=== PATIENT | female | born 1950 | race Caucasian/White ===

== ENCOUNTER 2017-03-13 21:11 | Inpatient (IN) | payer MEDICARE, OTHER ==
[~2017-03-13] VITALS: Ht 154.9 cm; Wt 100.0 kg
[2017-03-13 21:42] LABS: HEMATOCRIT 42.6 % (37.0-47.0); HEMOGLOBIN 14.3 g/dl (12.0-16.0); IMMATURE GRANULOCYTES 0.2 % (0.0-1.0); MEAN CORPUSCULAR HGB 30.9 pG CALC (26.0-32.0); MEAN CORPUSCULAR HGB CONC 33.6 g/L CALC (32.0-36.0); NEUT# 6.55 thou/uL (2.00-7.15); RED BLOOD COUNT 4.63 mill/uL (4.20-5.60); RED CELL DISTRI WIDTH 14.6 % (11.5-15.5)
[2017-03-13 21:56] LABS: ALBUMIN 4.4 g/dL (3.2-5.0); ALKALINE PHOSPHATASE 101 u/l (38-126); ANION GAP 17 (6-22 (CALC)); BILIRUBIN, TOTAL 0.5 mg/dL (0.0-1.4); BUN 13 mg/dL (8-23); BUN/CREATININE RATIO 18 (12-20 (CALC)); CALCIUM 9.2 mg/dL (8.4-10.2); CARBON DIOXIDE 24 mmol/l (22-30); CHLORIDE 105 mmol/l (95-108); CREATININE 0.7 mg/dL (0.5-1.0); GFR > 60 ML/MIN (>=60 (CALC)); GFR FOR AFR.AMER. > 60 ML/MIN (>=60 (CALC)); GLUCOSE 132 mg/dL (82-115); POTASSIUM 3.9 mmol/l (3.5-5.1); SGOT/AST 34 u/l (9-36); SGPT/ALT 47 u/l (11-66); SODIUM 142 mmol/l (137-146); TOTAL PROTEIN 7.1 g/dL (6.3-8.2)
[2017-03-13] MEDS ORDERED: EFFEXOR XR75 MG PO (21:56)
[2017-03-13] MEDS ORDERED: TRAZODONE50 MG PO (21:56)
[2017-03-13] MEDS ORDERED: ARIPIPRAZOLE5 MG PO (21:59)
[2017-03-13] MEDS ORDERED: WELLBUTRIN150 M1 PO (21:59)
[2017-03-13] MEDS ORDERED: PHENTERMINE37.5 M1 PO (22:00)
[2017-03-13] MEDS ORDERED: VIMPAT200 MG PO (22:01)
[2017-03-13 22:06] LABS: MYOGLOBIN 81 ng/mL (0 - 62)
[2017-03-13 22:45] LABS: URINE BILIRUBIN - DIPSTICK NEGATIVE (NEGATIVE); URINE BLOOD DIPSTICK NEGATIVE (NEGATIVE); URINE CLARITY CLEAR; URINE COLOR YELLOW; URINE GLUCOSE - DIPSTICK NEGATIVE (NEGATIVE); URINE KETONE TRACE mg/dL (NEGATIVE); URINE LEUK ESTERASE NEGATIVE (NEGATIVE); URINE NITRITE - DIPSTICK NEGATIVE (Negative); URINE PROTEIN - DIPSTICK NEGATIVE (NEG-TRACE); URINE SPECIFIC GRAVITY >=1.030; URINE UROBILINOGEN - DIPSTICK 0.2 E.U./dL (0.2)
[2017-03-14] VITALS (7 sets, daily range): BP systolic 113–158; BP diastolic 54–73
== END 2017-03-14 15:25 | disposition short-term general hospital (02) | DRG 281 ==
LOC: ED 21:11 → ED-I 21:57 → ED 03-14 02:28 → ICU 03-14 02:29
PROVIDERS: Emergency Medicine; ADMIT Internal Medicine; ATTEND Internal Medicine
DX: I21.4 Non-ST elevation (NSTEMI) myocardial infarction (principal); Z68.41 Body mass index [BMI] 40.0-44.9, adult; F41.9 Anxiety disorder, unspecified; R91.8 Other nonspecific abnormal finding of lung field; E66.9 Obesity, unspecified; F31.9 Bipolar disorder, unspecified; F22 Delusional disorders; R09.02 Hypoxemia
CPT/HCPCS: J1650; J2060; Q9967

== ENCOUNTER → 2018-05-24 | Outpatient (REF) | payer MEDICARE, OTHER ==
[~2018-05-24] MED LIST: ARIPIPRAZOLE5 MG PO; EFFEXOR XR75 MG PO; PHENTERMINE37.5 M1 PO; TRAZODONE50 MG PO; VIMPAT200 MG PO; WELLBUTRIN150 M1 PO
[2018-05-24 10:14] LABS: HEMATOCRIT 40.6 % (37.0-47.0); HEMOGLOBIN 13.5 g/dl (12.0-16.0); IMMATURE GRANULOCYTES 0.4 % (0.0-5.0); MEAN CELL VOLUME 92.9 fL CALC (80.0-100.0); MEAN CORPUSCULAR HGB 30.9 pG CALC (26.0-32.0); MEAN CORPUSCULAR HGB CONC 33.3 g/L CALC (32.0-36.0); NEUT# 3.82 thou/uL (2.00-7.15); RED BLOOD COUNT 4.37 mill/uL (4.20-5.60); RED CELL DISTRI WIDTH 12.9 % (11.5-15.5)
[2018-05-24 10:36] LABS: ALKALINE PHOSPHATASE 113 u/l (38-126); ANION GAP 14 (6-22 (CALC)); BILIRUBIN, TOTAL 0.5 mg/dL (0.0-1.4); BUN 11 mg/dL (8-23); BUN/CREATININE RATIO 15 (12-20 (CALC)); CALCULATED LDLCHOLESTEROL 75 mg/dL (62-129 (CALC)); CARBON DIOXIDE 29 mmol/l (22-30); CHLORIDE 107 mmol/l (95-108); CHOLESTEROL HDL RATIO 3.3 (<4.4 (CALC)); CREATININE 0.7 mg/dL (0.5-1.0); GFR > 60 ML/MIN (>=60 (CALC)); GFR FOR AFR.AMER. > 60 ML/MIN (>=60 (CALC)); HDL CHOLESTEROL 42 mg/dL (>=40); POTASSIUM 4.1 mmol/l (3.5-5.1); SGOT/AST 21 u/l (9-36); SODIUM 146 mmol/l (137-146); TOTAL PROTEIN 6.6 g/dL (6.3-8.2); TOTAL TRIGLYCERIDES 105 mg/dl (30-149); VLDL CHOLESTROL 21 mg/dl (1-41 (CALC))
[2018-05-24 10:38] LABS: TOTAL CHOLESTEROL 138 mg/dl (0-199)
[2018-05-24 11:04] LABS: TSH, 3RD GENERATION 1.37 uIU/mL (0.47 - 4.68)
== END | disposition home or self-care (01) ==
LOC: LAB 09:14
PROVIDERS: ATTEND Internal Medicine
DX: E78.2 Mixed hyperlipidemia (principal)

== ENCOUNTER 2018-11-19 15:38 | Emergency (ER) | payer MEDICARE, OTHER ==
[~2018-11-19] VITALS: Ht 154.9 cm; Wt 86.0 kg
[2018-11-19 16:55] LABS: URINE BILIRUBIN - DIPSTICK NEGATIVE (NEGATIVE); URINE BLOOD DIPSTICK NEGATIVE (NEGATIVE); URINE COLOR YELLOW; URINE GLUCOSE - DIPSTICK NEGATIVE (NEGATIVE); URINE KETONE NEGATIVE (NEGATIVE); URINE LEUK ESTERASE NEGATIVE (NEGATIVE); URINE NITRITE - DIPSTICK NEGATIVE (Negative); URINE PROTEIN - DIPSTICK NEGATIVE (NEG-TRACE); URINE UROBILINOGEN - DIPSTICK 0.2 E.U./dL (0.2)
[2018-11-19] MEDS ORDERED: LISINOPRIL20 M1 PO (17:08)
[2018-11-19] MEDS ORDERED: ATORVASTATIN CA40 MG PO (17:08)
[2018-11-19] MEDS ORDERED: CARVEDILOL6.25 MG PO (17:17)
[2018-11-19] MEDS ORDERED: REXULTI3 MG PO (17:18)
[2018-11-19] MEDS ORDERED: PAROXETINE HCL40 MG PO (17:19)
[2018-11-19] MEDS ORDERED: RISPERDAL2 MG PO (17:19)
[2018-11-19] MEDS ORDERED: LORAZEPAM0.5 MG PO (17:20)
[2018-11-19] MEDS ORDERED: DONEPEZIL HCL5 MG PO (17:21)
[2018-11-19 17:28] LABS: HEMATOCRIT 40.6 % (37.0-47.0); HEMOGLOBIN 13.2 g/dl (12.0-16.0); IMMATURE GRANULOCYTES 0.3 % (0.0-5.0); MEAN CELL VOLUME 91.6 fL CALC (80.0-100.0); MEAN CORPUSCULAR HGB 29.8 pG CALC (26.0-32.0); MEAN CORPUSCULAR HGB CONC 32.5 g/L CALC (32.0-36.0); NEUT# 4.12 thou/uL (2.00-7.15); RED BLOOD COUNT 4.43 mill/uL (4.20-5.60)
[2018-11-19 17:35] LABS: ANION GAP 12 (6-22 (CALC)); BUN 12 mg/dL (8-23); BUN/CREATININE RATIO 18 (12-20 (CALC)); CARBON DIOXIDE 28 mmol/l (22-30); CHLORIDE 106 mmol/l (95-108); CREATININE 0.6 mg/dL (0.5-1.0); GFR > 60 ML/MIN (>=60 (CALC)); GFR FOR AFR.AMER. > 60 ML/MIN (>=60 (CALC)); SODIUM 142 mmol/l (137-146)
[2018-11-19 18:24] VITALS: BP 166/72
== END 2018-11-19 18:56 | disposition home or self-care (01) ==
LOC: ED 15:38
PROVIDERS: Family Medicine
DX: R53.1 Weakness (principal); I10 Essential (primary) hypertension; G30.9 Alzheimer's disease, unspecified; F02.80 Dementia in other diseases classified elsewhere, unspecified severity, without behavioral disturbance, psychotic disturbance, mood disturbance, and anxiety

== ENCOUNTER 2019-05-02 13:29 | Inpatient (IN) | payer MEDICARE, OTHER ==
[~2019-05-02] VITALS: Ht 154.9 cm; Wt 79.0 kg
[~2019-05-02 13:29] MED LIST changes: +ATORVASTATIN CA40 MG PO; +CARVEDILOL6.25 MG PO; +DONEPEZIL HCL5 MG PO; +LISINOPRIL20 M1 PO; +LORAZEPAM0.5 MG PO; +PAROXETINE HCL40 MG PO; +REXULTI3 MG PO; +RISPERDAL2 MG PO
[2019-05-02 14:06] LABS: HEMATOCRIT 40.5 % (37.0-47.0); HEMOGLOBIN 12.9 g/dl (12.0-16.0); IMMATURE GRANULOCYTES 0.2 % (0.0-5.0); MEAN CELL VOLUME 93.1 fL CALC (80.0-100.0); MEAN CORPUSCULAR HGB 29.7 pG CALC (26.0-32.0); MEAN CORPUSCULAR HGB CONC 31.9 g/L CALC (32.0-36.0); NEUT# 2.44 thou/uL (2.00-7.15); RED BLOOD COUNT 4.35 mill/uL (4.20-5.60); RED CELL DISTRI WIDTH 13.2 % (11.5-15.5)
[2019-05-02 14:19] LABS: BILIRUBIN, TOTAL 0.7 mg/dL (0.0-1.4); BUN 54 mg/dL (8-23); BUN/CREATININE RATIO 61 (12-20 (CALC)); CHLORIDE 106 mmol/l (95-108); CREATININE 0.9 mg/dL (0.5-1.0); GFR > 60 ML/MIN (>=60 (CALC)); GFR FOR AFR.AMER. > 60 ML/MIN (>=60 (CALC)); LIPASE 106 u/l (23-300); POTASSIUM 4.6 mmol/l (3.5-5.1); SODIUM 142 mmol/l (137-146)
[2019-05-02 14:24] LABS: ALKALINE PHOSPHATASE 162 u/l (38-126); ANION GAP 17 (6-22 (CALC)); CARBON DIOXIDE 24 mmol/l (22-30); SGOT/AST 37 u/l (9-36); TOTAL PROTEIN 7.3 g/dL (6.3-8.2)
[2019-05-02 15:49] LABS: URINE BLOOD DIPSTICK NEGATIVE (NEGATIVE); URINE COLOR YELLOW; URINE GLUCOSE - DIPSTICK NEGATIVE (NEGATIVE); URINE KETONE 15 mg/dL (NEGATIVE); URINE LEUK ESTERASE NEGATIVE (NEGATIVE); URINE NITRITE - DIPSTICK NEGATIVE (Negative); URINE PH 5.5 (4.5-8.0); URINE PROTEIN - DIPSTICK NEGATIVE (NEG-TRACE); URINE SPECIFIC GRAVITY >=1.030; URINE UROBILINOGEN - DIPSTICK 0.2 E.U./dL (0.2)
[2019-05-02 15:51] LABS: URINE BILIRUBIN - DIPSTICK NEGATIVE (NEGATIVE)
[2019-05-02] MEDS ORDERED: QUETIAPINE FUMA50 MG PO (17:50)
[2019-05-02] MEDS ORDERED: QUETIAPINE FUMA25 MG PO (17:50)
[2019-05-02] MEDS ORDERED: CLONAZEPAM1 MG PO (17:51)
[2019-05-02] MEDS ORDERED: ATORVASTATIN CA20 MG PO (17:52)
[2019-05-02] MEDS ORDERED: ASPIRIN81 MG PO (17:53)
[2019-05-02] MEDS ORDERED: BENZTROPINE0.5 MG PO (17:54)
[2019-05-02] MEDS ORDERED: VITAMIN D1000 UNI1 PO (17:55)
[2019-05-02 19:12] VITALS: BP 132/64
[2019-05-02 23:12] VITALS: BP 134/59
[2019-05-03 03:51] VITALS: BP 150/62
[2019-05-03 09:30] VITALS: BP 130/80
[2019-05-03 10:46] VITALS: BP 151/84
[2019-05-03 13:32] LABS: ALKALINE PHOSPHATASE 131 u/l (38-126); ANION GAP 14 (6-22 (CALC)); BILIRUBIN, TOTAL 0.6 mg/dL (0.0-1.4); BUN 28 mg/dL (8-23); BUN/CREATININE RATIO 41 (12-20 (CALC)); CARBON DIOXIDE 24 mmol/l (22-30); CHLORIDE 108 mmol/l (95-108); CREATININE 0.7 mg/dL (0.5-1.0); GFR > 60 ML/MIN (>=60 (CALC)); GFR FOR AFR.AMER. > 60 ML/MIN (>=60 (CALC)); POTASSIUM 3.9 mmol/l (3.5-5.1); SGOT/AST 30 u/l (9-36); SODIUM 142 mmol/l (137-146)
[2019-05-03 13:47] LABS: TOTAL PROTEIN 5.6 g/dL (6.3-8.2)
[2019-05-03 14:54] VITALS: BP 140/56
[2019-05-03 19:53] VITALS: BP 126/60
[2019-05-03 23:07] VITALS: BP 98/55
[2019-05-04 04:10] VITALS: BP 115/59
[2019-05-04 05:38] LABS: HEMATOCRIT 35.7 % (37.0-47.0); MEAN CELL VOLUME 94.9 fL CALC (80.0-100.0); MEAN CORPUSCULAR HGB 29.3 pG CALC (26.0-32.0); MEAN CORPUSCULAR HGB CONC 30.8 g/L CALC (32.0-36.0); RED BLOOD COUNT 3.76 mill/uL (4.20-5.60); RED CELL DISTRI WIDTH 13.2 % (11.5-15.5)
[2019-05-04 05:48] LABS: ALBUMIN 2.9 g/dL (3.2-5.0); ALKALINE PHOSPHATASE 114 u/l (38-126); ANION GAP 15 (6-22 (CALC)); BILIRUBIN, TOTAL 0.7 mg/dL (0.0-1.4); BUN 21 mg/dL (8-23); BUN/CREATININE RATIO 34 (12-20 (CALC)); CHLORIDE 112 mmol/l (95-108); CREATININE 0.6 mg/dL (0.5-1.0); GFR > 60 ML/MIN (>=60 (CALC)); GFR FOR AFR.AMER. > 60 ML/MIN (>=60 (CALC)); POTASSIUM 3.8 mmol/l (3.5-5.1); SGOT/AST 34 u/l (9-36); SODIUM 142 mmol/l (137-146); TOTAL PROTEIN 5.6 g/dL (6.3-8.2)
[2019-05-04 05:51] LABS: CARBON DIOXIDE 19 mmol/l (22-30)
[2019-05-04 07:58] VITALS: BP 133/59
[2019-05-04 10:41] VITALS: BP 110/60
[2019-05-04 15:33] VITALS: BP 122/61
[2019-05-04 19:00] VITALS: BP 117/53
[2019-05-05 00:24] VITALS: BP 138/60
[2019-05-05 04:39] VITALS: BP 132/66
[2019-05-05 05:32] LABS: HEMATOCRIT 32.6 % (37.0-47.0); HEMOGLOBIN 10.7 g/dl (12.0-16.0); IMMATURE GRANULOCYTES 0.2 % (0.0-5.0); MEAN CELL VOLUME 91.1 fL CALC (80.0-100.0); MEAN CORPUSCULAR HGB 29.9 pG CALC (26.0-32.0); MEAN CORPUSCULAR HGB CONC 32.8 g/L CALC (32.0-36.0); NEUT# 3.25 thou/uL (2.00-7.15); RED BLOOD COUNT 3.58 mill/uL (4.20-5.60); RED CELL DISTRI WIDTH 13.1 % (11.5-15.5)
[2019-05-05 05:44] LABS: ALBUMIN 2.4 g/dL (3.2-5.0); ALKALINE PHOSPHATASE 108 u/l (38-126); BILIRUBIN, TOTAL 0.5 mg/dL (0.0-1.4); BUN 12 mg/dL (8-23); BUN/CREATININE RATIO 21 (12-20 (CALC)); CHLORIDE 110 mmol/l (95-108); CREATININE 0.6 mg/dL (0.5-1.0); GFR > 60 ML/MIN (>=60 (CALC)); GFR FOR AFR.AMER. > 60 ML/MIN (>=60 (CALC)); POTASSIUM 3.3 mmol/l (3.5-5.1); SGOT/AST 28 u/l (9-36); SODIUM 141 mmol/l (137-146); TOTAL PROTEIN 4.8 g/dL (6.3-8.2)
[2019-05-05 05:45] LABS: ANION GAP 9 (6-22 (CALC)); CARBON DIOXIDE 25 mmol/l (22-30)
[2019-05-05 08:14] VITALS: BP 142/43
[2019-05-05 11:00] VITALS: BP 116/59
[2019-05-05 15:10] VITALS: BP 132/62
[2019-05-05 20:12] VITALS: BP 138/71
[2019-05-06 00:16] VITALS: BP 149/74
[2019-05-06 04:20] VITALS: BP 155/65
[2019-05-06 05:18] LABS: HEMATOCRIT 34.9 % (37.0-47.0); HEMOGLOBIN 11.4 g/dl (12.0-16.0); IMMATURE GRANULOCYTES 0.2 % (0.0-5.0); MEAN CELL VOLUME 92.6 fL CALC (80.0-100.0); MEAN CORPUSCULAR HGB 30.2 pG CALC (26.0-32.0); MEAN CORPUSCULAR HGB CONC 32.7 g/L CALC (32.0-36.0); NEUT# 4.06 thou/uL (2.00-7.15); RED BLOOD COUNT 3.77 mill/uL (4.20-5.60); RED CELL DISTRI WIDTH 13.3 % (11.5-15.5)
[2019-05-06 05:40] LABS: ALBUMIN 2.7 g/dL (3.2-5.0); ALKALINE PHOSPHATASE 111 u/l (38-126); ANION GAP 11 (6-22 (CALC)); BILIRUBIN, TOTAL 0.7 mg/dL (0.0-1.4); BUN 10 mg/dL (8-23); BUN/CREATININE RATIO 18 (12-20 (CALC)); CARBON DIOXIDE 23 mmol/l (22-30); CHLORIDE 111 mmol/l (95-108); CREATININE 0.5 mg/dL (0.5-1.0); GFR > 60 ML/MIN (>=60 (CALC)); GFR FOR AFR.AMER. > 60 ML/MIN (>=60 (CALC)); POTASSIUM 3.6 mmol/l (3.5-5.1); SGOT/AST 37 u/l (9-36); SODIUM 142 mmol/l (137-146); TOTAL PROTEIN 5.3 g/dL (6.3-8.2)
[2019-05-06 08:00] VITALS: BP 146/73
[2019-05-06 10:53] VITALS: BP 133/59
[2019-05-06 15:59] VITALS: BP 152/61
[2019-05-06 19:39] VITALS: BP 149/57
[2019-05-07 00:05] VITALS: BP 136/67
[2019-05-07 04:08] VITALS: BP 126/65
[2019-05-07] MEDS ORDERED: CLONAZEPAM1 MG PO (09:34)
[2019-05-07 11:37] VITALS: BP 121/50
[2019-05-07 15:58] VITALS: BP 119/57
[2019-05-07 19:22] VITALS: BP 134/62
[2019-05-07 23:40] VITALS: BP 104/60
[2019-05-08 03:45] VITALS: BP 138/67
[2019-05-08 08:52] VITALS: BP 141/59
[2019-05-08 11:22] VITALS: BP 127/46
[2019-05-08 12:10] VITALS: BP 127/50
== END 2019-05-08 12:48 | DRG 641 ==
LOC: ED 13:29 → ED-I 16:49 → ED 17:00 → MS2 17:01
PROVIDERS: Family Medicine; Nurse Practitioner Family; ADMIT Internal Medicine; ATTEND Internal Medicine
DX: E46 Unspecified protein-calorie malnutrition (principal); F02.81 Dementia in other diseases classified elsewhere, unspecified severity, with behavioral disturbance; R62.7 Adult failure to thrive; G30.9 Alzheimer's disease, unspecified; E86.0 Dehydration; R53.81 Other malaise; I10 Essential (primary) hypertension; S00.03XA Contusion of scalp, initial encounter; G40.909 Epilepsy, unspecified, not intractable, without status epilepticus; E78.5 Hyperlipidemia, unspecified; F41.9 Anxiety disorder, unspecified; F32.9 Major depressive disorder, single episode, unspecified; I25.2 Old myocardial infarction; W19.XXXA Unspecified fall, initial encounter; Z68.32 Body mass index [BMI] 32.0-32.9, adult
CPT/HCPCS: G0378; J1650

== ENCOUNTER 2021-07-28 17:55 | Inpatient (IN) | payer MEDICARE, OTHER, MEDICAID ==
[~2021-07-28] VITALS: Ht 154.9 cm; Wt 83.3 kg
[~2021-07-28 17:55] MED LIST changes: +ASPIRIN81 MG PO; +ATORVASTATIN CA20 MG PO; +BENZTROPINE0.5 MG PO; +CLONAZEPAM1 MG PO; +QUETIAPINE FUMA25 MG PO; +QUETIAPINE FUMA50 MG PO; +VITAMIN D1000 UNI1 PO
--- NOTE | 2021-07-28 18:18 | NUR ---
PT TO ROOM WITH , PT ALERT/ORIENTED X1, PT HAS DEMENTIA, STATES SHE ATE A SAUSAGE SANDWICH THIS AM, AND THEN ABOUT 10 MIN LATER STATES SHE WAS HAVING CHEST PAIN/ABDOMINAL PAIN,
[2021-07-28] MEDS ORDERED: MAGNESIUM400 M1 PO (18:30)
[2021-07-28] MEDS ORDERED: MIRTAZAPINE15 MG PO (18:30)
[2021-07-28 18:31] LABS: HEMOGLOBIN 14.3 g/dl (12.0-16.0); IMMATURE GRANULOCYTES 0.3 % (0.0-5.0); MEAN CELL VOLUME 93.3 fL CALC (80.0-100.0); MEAN CORPUSCULAR HGB CONC 33.3 g/dL CAL (32.0-36.0); NEUT# 8.84 thou/uL (2.00-7.15); RED BLOOD COUNT 4.61 mill/uL (4.20-5.60); RED CELL DISTRI WIDTH 12.9 % (11.5-15.5)
[2021-07-28] MEDS ORDERED: MEMANTINE HYDROC5 MG PO (18:31)
[2021-07-28 18:46] LABS: ALBUMIN 4.6 g/dL (3.2-5.0); ALKALINE PHOSPHATASE 153 u/l (38-126); ANION GAP 13 (6-22 (CALC)); BUN 28 mg/dL (8-23); BUN/CREATININE RATIO 22 (12-20 (CALC)); CARBON DIOXIDE 30 mmol/l (22-30); CHLORIDE 104 mmol/l (95-108); CREATININE 1.3 mg/dL (0.5-1.0); GFR 40 ML/MIN (>=60 (CALC)); GFR FOR AFR.AMER. 49 ML/MIN (>=60 (CALC)); POTASSIUM 4.1 mmol/l (3.5-5.1); SGOT/AST 31 u/l (9-36); SODIUM 143 mmol/l (137-146)
[2021-07-28 18:51] LABS: BILIRUBIN, TOTAL 0.8 mg/dL (0.0-1.4); TOTAL PROTEIN 8.2 g/dL (6.3-8.2)
--- NOTE | 2021-07-28 21:20 | NUR ---
16 FR SALEM SUMP PLACED VIA RIGHT NARE TO LCS
--- NOTE | 2021-07-28 21:55 | NUR ---
100ML OF STOMACH CONTENTS SUCTIONED VIA NG TUBE, PT TOLERATED WELL.
[2021-07-28 23:34] LABS: PROTHROMBIN TIME 10.3 SECONDS (9.0-12.5)
[2021-07-29] VITALS (8 sets, daily range): BP systolic 112–168; BP diastolic 44–95
--- NOTE | 2021-07-29 01:30 | NUR ---
PLACED IN HOSPITAL BED FOR COMFORT
[2021-07-29 01:44] LABS: URINE BILIRUBIN - DIPSTICK NEGATIVE (NEGATIVE); URINE BLOOD DIPSTICK NEGATIVE (NEGATIVE); URINE COLOR YELLOW; URINE GLUCOSE - DIPSTICK NEGATIVE (NEGATIVE); URINE KETONE NEGATIVE (NEGATIVE); URINE LEUK ESTERASE NEGATIVE (NEGATIVE); URINE PH 8.5 (4.5-8.0); URINE PROTEIN - DIPSTICK TRACE mg/dL (NEG-TRACE); URINE UROBILINOGEN - DIPSTICK 0.2 E.U./dL (0.2)
[2021-07-29 01:46] LABS: URINE NITRITE - DIPSTICK NEGATIVE (Negative)
[2021-07-29 03:56] LABS: HEMOGLOBIN 13.1 g/dl (12.0-16.0); MEAN CELL VOLUME 93.5 fL CALC (80.0-100.0); MEAN CORPUSCULAR HGB 30.6 pG CALC (26.0-32.0); MEAN CORPUSCULAR HGB CONC 32.8 g/dL CAL (32.0-36.0); RED BLOOD COUNT 4.28 mill/uL (4.20-5.60)
[2021-07-29 04:08] LABS: CREATININE 1.2 mg/dL (0.5-1.0); POTASSIUM 4.1 mmol/l (3.5-5.1)
--- NOTE | 2021-07-29 07:45 | NUR ---
REPORT CALLED TO ALYX IN ICU PRIOR TO TRANSFER. TRANSPORTED PATIENT TO ROOM IN HOSPITAL BED. ALERT AND ORIENTED, NO ACUTE DISTRESS. HAND OFF AT BEDSIDE.
--- NOTE | 2021-07-29 07:45 | NUR ---
PT IN ROOM FROM ER. RECIEVED REPORT FROM YAEL NOE IN ER AT 0715 VIA PHONE. PT ORIENTED TO PERSON AND PLACE, DENIES PAIN, NG TUBE IN PLACE, HOOKED UP TO LOW INTERMITTANT SUCTION. DENIES ANY NEEDS, ORIENTED TO ROOM AND CALL LIGHT
--- NOTE | 2021-07-29 10:30 | NUR ---
PT AT BEDSIDE, NOTIFIED OR SO HE IS ABLE TO SIGN CONSENTS WHILE IN HOUSE
--- NOTE | 2021-07-29 11:55 | NUR ---
OR RNS AT BEDSIDE TO TRANSPORT PT TO SURGERY
--- NOTE | 2021-07-29 16:04 | NUR ---
PT ARRIVED TO [facility] ROOM 270 VIA STRETCHER ACCOMPAINED BY OR STAFF. REPORT RECIEVED FROM YAEL ALVARENGA. PT IS A/O X2 WITH SOME CONFUSION. RESPIRTIONS ARE EVEN AND UNLABORED WITH NO DISTRESS NOTED ON ROOM AIR. HEART RHYTHM NORMAL BOWEL SOUNDS ARE ACTIVE. #20G LAC INFUSING WITH IVF PER ORDER, SITE REMAINS HEALTHY AND PATENT. REDNESS NOTED TO COCCYX. RIGHT NARE NGT VERIFIED FOR PLACEMENT. VERBAL ORDERS RECIEVED FROM DR PENNINGTON FOR NGT TO REMAIN CLAMPED, IF PT BECOMES NAUSEATED THEN APPLY CONTINOUS SUCTION. LAP SITE X3 NOTED.SCDS APPLIED. PT DENIES OF ANY PAINS OR DISCOMFORTS AT THIS TIME.PT ORIENTED TO ROOM AND CALL SYSTEM, ALL SAFETY PRECAUTIONS ARE IN PLACE WITH CALL LIGHT IN REACH. BED ALARM ACTIVE.
--- NOTE | 2021-07-29 16:40 | NUR ---
BP ELEVATED AND PT COMPLAINING OF 5/10 PAIN. PT MEDICATED PER EMAR. PT TOLERATED WELL.PT REMAINS AGGITATED. WILL CONTINUE TO MONITOR
--- NOTE | 2021-07-29 17:02 | NUR ---
NGT TO RIGHT NARE REMOVDE BY PT.DR PENNINGTON INFORMED. NO ORDERS TO REINSERT. PT AGGITATED WANTING TO LEAVE. PT REMAINS A/O X2 AND CONFUSED. PT INFORMED OF OVRNIGHT STAY. PT CONTINUES TO BE AGITATED AND USING FOUL LANGUAGE. SAFTEY PRECAUTIONS IN PLACE. BED ALARM ACTIVE
--- NOTE | 2021-07-29 18:56 | NUR ---
PT YET TO VOID. ATTEMPTED T BLADDER SCAN. PT REFUSE STATING " NO IM AM DAMN TIRED OF THIS, I CAN LEAVE IF I WANT TO" PT INFORMED OF OVERNIGHT STAY PER SURGERY, NOTIFIED. PT REMAINS AGGITATED.
--- NOTE | 2021-07-29 19:48 | NUR ---
PT RESTING IN BED, NO SIGNS OF DISTRESS NOTED, RESP EVEN AND UNLABORED. INTRODUCED SELF TO PT, DISCUSSED POC, PT BECAME TEARFUL, NOTED PT SHAKING. WHEN ASKED WHAT IS WRONG PT STATES SHE IS AFRAID. THERAPUTIC TECHNIQUES USED TO CALM PT DOWN, PT BEGAN TO SMILE AND BE COOPERATIVE. PT ALLOWED SENIOR SECURITY ANALYST TO DO AN ASSESSMENT NOTED X3 INCISIONS WITH DERMABOND GEOLOGY SCIENTIST, WELL APPROXIMATED. PT HAS A PURE WICK NO URINE NOTED, PT BLADDER SCANNED NOTHING NOTED IN SCANNER. PT PROVIDED TEACHING ON INCENTIVE SPIROMETER, PT ABLE TO REACH 1000ML TOTAL VOLUME, ASSESSMENT COMPLETED, CALL LIGHT IN REACH, BED ALARM FOR SAFETY, CONTINUE TO MONITOR.
--- NOTE | 2021-07-29 21:40 | NUR ---
PT RESTING IN BED WITH EYES CLOSED, NO SIGNS OF DISTRESS NOTED, RESP EVEN AND UNLABORED. IV ANTIBIOTIC INFUSING, CALL LIGHT IN REACH,CONTINUE TO MONITOR.
[2021-07-30] VITALS: BP 136/65
--- NOTE | 2021-07-30 | NUR ---
PT RESTING IN BED WITH EYES CLOSED, NO SIGNS OF DISTRESS NOTED, RESP EVEN AND UNLABORED. CALL LIGHT IN REACH,CONTINUE TO MONITOR.
--- NOTE | 2021-07-30 02:30 | NUR ---
PT ASSISTED TO BATHROOM, WHERE SHE VOIDED AND HAD A LOOSE BROWN BM, PT ASSISTED BACK TO BED, VOICES NO NEEDS OR COMPLAINTS AT THIS TIME, CALL LIGHT IN REACH,CONTINUE TO MONITOR.
[2021-07-30 04:00] VITALS: BP 136/65
--- NOTE | 2021-07-30 04:00 | NUR ---
PT RESTING IN BED, WITH EYES CLOSED, NO SIGNS OF DISTRESS NOTED, RESP EVEN AND UNLABORED, CALL LIGHT IN REACH,CONTINUE TO MONITOR.
[2021-07-30 05:29] LABS: IMMATURE GRANULOCYTES 0.2 % (0.0-5.0); MEAN CELL VOLUME 95.9 fL CALC (80.0-100.0); MEAN CORPUSCULAR HGB 30.6 pG CALC (26.0-32.0); MEAN CORPUSCULAR HGB CONC 31.9 g/dL CAL (32.0-36.0); NEUT# 4.27 thou/uL (2.00-7.15); RED BLOOD COUNT 3.43 mill/uL (4.20-5.60); RED CELL DISTRI WIDTH 13.6 % (11.5-15.5)
[2021-07-30 05:41] LABS: HEMATOCRIT 32.9 % (37.0-47.0); HEMOGLOBIN 10.5 g/dl (12.0-16.0)
[2021-07-30 05:56] LABS: ANION GAP 8 (6-22 (CALC)); BUN 20 mg/dL (8-23); BUN/CREATININE RATIO 21 (12-20 (CALC)); CARBON DIOXIDE 27 mmol/l (22-30); CHLORIDE 115 mmol/l (95-108); GFR 55 ML/MIN (>=60 (CALC)); GFR FOR AFR.AMER. > 60 ML/MIN (>=60 (CALC)); POTASSIUM 4.1 mmol/l (3.5-5.1); SODIUM 145 mmol/l (137-146)
--- NOTE | 2021-07-30 07:00 | NUR ---
RECIEVED REPORT ELADIA LOTT
--- NOTE | 2021-07-30 08:15 | NUR ---
PT INCONT OF LARGE BOWEL. GROUP MARKETING VP AT BEDSIDE TO ASSIST
[2021-07-30 09:13] VITALS: BP 152/70
--- NOTE | 2021-07-30 09:13 | NUR ---
PT SITTING UP IN CHAIR. PT IS A/O X1. ASSESSMENT AND VITALS COMPLETED. BP 152/70, HR 74, O2 94% ON ROOM AIR. RESPIRATIONS ARE EVEN AND UNLABORED WITH NO DISTRESS NOTED. LUNG SOUNDS ARE CLEAR. BOWEL SOUNDS ARE ACTIVE. LBM 12/10. #20G LAC INFUSING WITH IVF PER ORDER, SITE REMAINS HEALTHY AND PATENT. SKIN INTACT. PULSES STRONG. PT DENIES OF ANY PAINS OR DISCOMFORTS AT THIS TIME. ALL SAFETY PRECAUTIONS ARE IN PLACE WITH CALL LIGHT IN REACH. CHAIR ALARM ACTIVE. WILL CONTINUE TO MONITOR.
--- NOTE | 2021-07-30 09:46 | NUR ---
DR PARKS AND MATILDA,ANMONICA AT BEDSIDE
[2021-07-30 10:39] VITALS: BP 121/64
--- NOTE | 2021-07-30 12:23 | NUR ---
PT SITTING UP IN RECYLINER WATCHING TV WITH AT BEDSIDE. REPSIRATIONS ARE EVEN AND UNLABORED WITH NO DISTRESS NOTED.#20G LAC REMAINS INFUSIONG WITH IVF PER ORDER, SITE REMAINS HEALTHY AND PATENT. PT DENIES OF ANY PAINS OR DISCOMFORTS AT THIS TIME. ALL SFAETY PRECAUTIONS ARE IN PLACE WITH CALL LIGHT IN REACH. WILL CONTINUE TO MONITOR
[2021-07-30] MEDS ORDERED: TRAMADOL HCL50 MG PO ×2 (13:04→16:26)
--- NOTE | 2021-07-30 13:41 | NUR ---
CALLED AND INFORMED OF DC. TO ARRIVED AT 1430
--- NOTE | 2021-07-30 14:44 | NUR ---
AT BEDSIDE. DC INSTRUCTION EDUCATED TO BOTH PT AND . BOTH VERBLAIZED UNDERSTANDING. ALL SAFETY PRECAUTIONS ARE IN PLACE WITH CLAL LIGHT IN REACH.
--- NOTE | 2021-07-30 14:45 | NUR ---
Discharge instructions given. Patient verbalizes understanding of same. Discharged in stable condition via Wheelchair to Home with staff. All belongings sent with pt. PT DC HOME WITH [facility] WITH ALL DC INSTRUCTIONS. TRAMADOL TO BE SENT TO [facility] DUE TO AMA BEING CLOSED.
== END 2021-07-30 14:44 | disposition home health service (06) | DRG 336 ==
LOC: ED 17:55 → ED-I 21:13 → ED 21:22 → ED-I 21:23 → ICU 07-29 07:48 → MS2 07-29 16:13
PROVIDERS: Emergency Medicine; Family Medicine; Surgery; ADMIT Hospitalist; ATTEND Hospitalist
PROC: 0DN84ZZ Release Small Intestine, Percutaneous Endoscopic Approach (ICD-10-PCS; principal; 2021-07-29)
DX: K56.50 Intestinal adhesions [bands], unspecified as to partial versus complete obstruction (principal); N17.9 Acute kidney failure, unspecified; K92.2 Gastrointestinal hemorrhage, unspecified; I12.9 Hypertensive chronic kidney disease with stage 1 through stage 4 chronic kidney disease, or unspecified chronic kidney disease; N18.9 Chronic kidney disease, unspecified; G30.9 Alzheimer's disease, unspecified; F02.80 Dementia in other diseases classified elsewhere, unspecified severity, without behavioral disturbance, psychotic disturbance, mood disturbance, and anxiety; I25.10 Atherosclerotic heart disease of native coronary artery without angina pectoris; G40.909 Epilepsy, unspecified, not intractable, without status epilepticus; E78.5 Hyperlipidemia, unspecified; F41.9 Anxiety disorder, unspecified; F32.A Depression, unspecified; I25.2 Old myocardial infarction; Z20.822 Contact with and (suspected) exposure to COVID-19
CPT/HCPCS: Q9967; S0164

== ENCOUNTER 2023-08-07 07:03 | Inpatient (IN) | payer MEDICARE, OTHER, MEDICAID ==
[2023-08-07] VITALS (35 sets, daily range): BP systolic 86–263; BP diastolic 40–241
[~2023-08-07] VITALS: Ht 154.9 cm; Wt 64.2 kg
[~2023-08-07 07:03] MED LIST changes: +MAGNESIUM400 M1 PO; +MEMANTINE HYDROC5 MG PO; +MIRTAZAPINE15 MG PO; +TRAMADOL HCL50 MG PO
[2023-08-07 07:51] LABS: BASO% 0.4 % (0-3); EOS% 1.8 % (0-8); HEMATOCRIT 37.9 % (37.0-47.0); HEMOGLOBIN 11.9 g/dl (12.0-16.0); LYMPH% 22.5 % (15-41); MEAN CELL VOLUME 96.7 fL CALC (80.0-100.0); MEAN CORPUSCULAR HGB 30.4 pG CALC (26.0-32.0); MEAN CORPUSCULAR HGB CONC 31.4 g/dL CAL (32.0-36.0); MONO% 8.9 % (2-13); NEUT# 3.34 thou/uL (2.00-7.15); NEUT% 66.4 % (42-76); RED BLOOD COUNT 3.92 mill/uL (4.20-5.60); RED CELL DISTRI WIDTH 13.4 % (11.5-15.5)
[2023-08-07 08:02] LABS: ALBUMIN 4.2 g/dL (3.2-5.0); ALKALINE PHOSPHATASE 77 u/l (38-126); ANION GAP 13 (6-22 (CALC)); BILIRUBIN, TOTAL 0.5 mg/dL (0.02-1.3); BUN 23 mg/dL (8-23); BUN/CREATININE RATIO 17 (12-20 (CALC)); CARBON DIOXIDE 26 mmol/l (22-30); CHLORIDE 107 mmol/l (95-108); CREATININE 1.4 mg/dL (0.5-1.0); GFR FOR AFR.AMER. 44 ML/MIN (>=60 (CALC)); GFR OTHER RACES 37 ML/MIN (>=60 (CALC)); POTASSIUM 4.2 mmol/l (3.5-5.1); SGOT/AST 29 u/l (9-36); SODIUM 141 mmol/l (137-146); TOTAL PROTEIN 6.8 g/dL (6.3-8.2)
[2023-08-07 09:10] LABS: URINE BILIRUBIN - DIPSTICK Negative (NEGATIVE); URINE BLOOD DIPSTICK Negative (NEGATIVE); URINE COLOR Yellow; URINE GLUCOSE - DIPSTICK Negative (NEGATIVE); URINE KETONE Negative (NEGATIVE); URINE LEUK ESTERASE Moderate (NEGATIVE); URINE NITRITE - DIPSTICK Negative (Negative); URINE PH 8.5 (4.5-8.0); URINE PROTEIN - DIPSTICK Negative (NEG-TRACE); URINE SPECIFIC GRAVITY 1.015; URINE UROBILINOGEN - DIPSTICK 0.2 E.U./dL (0.2)
[2023-08-07 09:17] LABS: URINE HYALINE CAST MODERATE lpf (NONE-RARE)
[2023-08-07 09:22] LABS: URINE BACTERIA FEW hpf
[2023-08-07 09:25] LABS: URINE RENAL EPITHELIAL CELLS FEW hpf
[2023-08-08] VITALS (11 sets, daily range): BP systolic 100–156; BP diastolic 42–60
[2023-08-08 07:00] LABS: BASO% 0.5 % (0-3); EOS% 1.6 % (0-8); HEMOGLOBIN 13.4 g/dl (12.0-16.0); IMMATURE GRANULOCYTES 0.9 % (0.0-5.0); LYMPH% 21.1 % (15-41); MEAN CELL VOLUME 95.9 fL CALC (80.0-100.0); MEAN CORPUSCULAR HGB 30.6 pG CALC (26.0-32.0); MEAN CORPUSCULAR HGB CONC 31.9 g/dL CAL (32.0-36.0); MONO% 6.4 % (2-13); NEUT# 3.93 thou/uL (2.00-7.15); NEUT% 69.5 % (42-76); RED BLOOD COUNT 4.38 mill/uL (4.20-5.60); RED CELL DISTRI WIDTH 13.3 % (11.5-15.5)
[2023-08-08 07:33] LABS: ALBUMIN 4.4 g/dL (3.2-5.0); ALKALINE PHOSPHATASE 106 u/l (38-126); ANION GAP 17 (6-22 (CALC)); BUN 17 mg/dL (8-23); BUN/CREATININE RATIO 19 (12-20 (CALC)); CARBON DIOXIDE 21 mmol/l (22-30); CHLORIDE 109 mmol/l (95-108); CREATININE 0.9 mg/dL (0.5-1.0); GFR FOR AFR.AMER. > 60 ML/MIN (>=60 (CALC)); GFR OTHER RACES > 60 ML/MIN (>=60 (CALC)); MAGNESIUM 1.8 mg/dL (1.6-2.3); POTASSIUM 4.1 mmol/l (3.5-5.1); SGOT/AST 31 u/l (9-36); SODIUM 142 mmol/l (137-146); TOTAL PROTEIN 7.4 g/dL (6.3-8.2)
[2023-08-08 07:38] LABS: BILIRUBIN, TOTAL 0.8 mg/dL (0.02-1.3)
[2023-08-09] VITALS (7 sets, daily range): BP systolic 95–154; BP diastolic 48–89
[2023-08-09 08:24] LABS: HEMATOCRIT 36.2 % (37.0-47.0); HEMOGLOBIN 11.7 g/dl (12.0-16.0); MEAN CELL VOLUME 96.5 fL CALC (80.0-100.0); MEAN CORPUSCULAR HGB 31.2 pG CALC (26.0-32.0); MEAN CORPUSCULAR HGB CONC 32.3 g/dL CAL (32.0-36.0); RED BLOOD COUNT 3.75 mill/uL (4.20-5.60); RED CELL DISTRI WIDTH 13.3 % (11.5-15.5)
[2023-08-09 08:39] LABS: ALBUMIN 3.7 g/dL (3.2-5.0); ALKALINE PHOSPHATASE 100 u/l (38-126); ANION GAP 12 (6-22 (CALC)); BILIRUBIN, TOTAL 0.5 mg/dL (0.02-1.3); BUN 15 mg/dL (8-23); BUN/CREATININE RATIO 18 (12-20 (CALC)); CARBON DIOXIDE 21 mmol/l (22-30); CHLORIDE 113 mmol/l (95-108); CREATININE 0.9 mg/dL (0.5-1.0); GFR FOR AFR.AMER. > 60 ML/MIN (>=60 (CALC)); GFR OTHER RACES > 60 ML/MIN (>=60 (CALC)); MAGNESIUM 1.6 mg/dL (1.6-2.3); POTASSIUM 3.9 mmol/l (3.5-5.1); SGOT/AST 25 u/l (9-36); SODIUM 142 mmol/l (137-146)
[2023-08-10] VITALS (7 sets, daily range): BP systolic 108–145; BP diastolic 57–88
[2023-08-10 06:48] LABS: BASO% 0.4 % (0-3); HEMATOCRIT 37.2 % (37.0-47.0); HEMOGLOBIN 11.7 g/dl (12.0-16.0); MEAN CORPUSCULAR HGB 31.5 pG CALC (26.0-32.0); MEAN CORPUSCULAR HGB CONC 31.5 g/dL CAL (32.0-36.0); MONO% 9.4 % (2-13); NEUT# 2.99 thou/uL (2.00-7.15); NEUT% 61.2 % (42-76); RED BLOOD COUNT 3.72 mill/uL (4.20-5.60); RED CELL DISTRI WIDTH 13.6 % (11.5-15.5)
[2023-08-10 08:10] LABS: ALBUMIN 3.8 g/dL (3.2-5.0); ALKALINE PHOSPHATASE 99 u/l (38-126); ANION GAP 12 (6-22 (CALC)); BILIRUBIN, TOTAL 0.5 mg/dL (0.02-1.3); BUN 11 mg/dL (8-23); BUN/CREATININE RATIO 14 (12-20 (CALC)); CARBON DIOXIDE 22 mmol/l (22-30); CHLORIDE 113 mmol/l (95-108); CREATININE 0.8 mg/dL (0.5-1.0); GFR FOR AFR.AMER. > 60 ML/MIN (>=60 (CALC)); GFR OTHER RACES > 60 ML/MIN (>=60 (CALC)); POTASSIUM 4.2 mmol/l (3.5-5.1); SGOT/AST 26 u/l (9-36); SODIUM 144 mmol/l (137-146); TOTAL PROTEIN 6.1 g/dL (6.3-8.2)
[2023-08-10 08:19] LABS: MAGNESIUM 2.1 mg/dL (1.6-2.3)
[2023-08-10] MEDS ORDERED: OMNICEF300 M1 PO (10:31)
== END 2023-08-10 15:00 | DRG 690 ==
LOC: ED 07:03 → ED-I 09:50 → ED 10:33 → ED-I 10:34 → MS2 10:34
PROVIDERS: Family Medicine; Student in an Organized Health Care Education/Training Program; ADMIT Student in an Organized Health Care Education/Training Program; ATTEND Student in an Organized Health Care Education/Training Program
DX: N39.0 Urinary tract infection, site not specified (principal); N17.9 Acute kidney failure, unspecified; R62.7 Adult failure to thrive; G30.9 Alzheimer's disease, unspecified; F02.80 Dementia in other diseases classified elsewhere, unspecified severity, without behavioral disturbance, psychotic disturbance, mood disturbance, and anxiety; I12.9 Hypertensive chronic kidney disease with stage 1 through stage 4 chronic kidney disease, or unspecified chronic kidney disease; N18.9 Chronic kidney disease, unspecified; E86.0 Dehydration; I25.10 Atherosclerotic heart disease of native coronary artery without angina pectoris; G40.909 Epilepsy, unspecified, not intractable, without status epilepticus; E78.5 Hyperlipidemia, unspecified; F41.9 Anxiety disorder, unspecified; F32.A Depression, unspecified; I25.2 Old myocardial infarction; Z91.81 History of falling
CPT/HCPCS: J3475; S0166